=== PATIENT | female | born 1995 | race Caucasian/White ===

== ENCOUNTER 2019-12-16 10:16 | Inpatient (IN) | payer BC ==
[2019-12-14 09:13] VITALS: BMI 26.6
[2019-12-16] MEDS ORDERED: Acetaminophen 325 MG TAB PO PRN (10:29)
[2019-12-16] MEDS ORDERED: Mag-Al 1200 mg/1200 mg/30 ML UDCUP PO PRN (10:29)
[2019-12-16] MEDS ORDERED: Promethazine HCl 25 MG/ML VIAL IM PRN (10:29)
[2019-12-16] MEDS ORDERED: Docusate 100 MG CAP PO PRN (10:29)
[2019-12-16] MEDS ORDERED: Promethazine 25 MG TAB PO PRN (10:29)
[2019-12-16] MEDS ORDERED: Morphine 2 MG/ML SYRINGE SLOW IVP PRN (10:29)
[2019-12-16] MEDS ORDERED: diphenhydrAMINE 50 MG/ML VIAL IVP PRN (10:29)
[2019-12-16] MEDS ORDERED: Ondansetron PF 4 MG/2 ML Vial IVP PRN (10:29)
[2019-12-16] MEDS: Sodium Chloride 0.9% 1,000 ML IV SCH ×2 (20:03→23:36)
[2019-12-16] MEDS: Famotidine 20 MG TAB PO SCH (20:25)
[2019-12-16 20:52] LABS: #Basophils 0.1 thou/uL (0.0-0.2); #Eosinphils 0.1 thou/uL (0.0-0.7); #Lymphocytes 3.2 thou/uL (1.20-3.40); #Neutrophils 11.7 thou/uL (1.40-6.50); %Basophils 0.3 % (0.0-1.0); %Eosinophils 0.4 % (0.0-10.0); %Lymphocytes 19.9 % (21.0-51.0); %Monocytes 6.4 % (0.0-10.0); Hemoglobin 15.3 g/dL (12.0-16.0); Mean Corpuscular HGB CONC 33.5 g/dL (32.0-36.0); Mean Corpuscular Hemoglobin 30.6 pg (27.0-31.0); Mean Corpuscular Volume 91.3 fL (78.0-98.0); Platelet Count 421 thou/uL (130-400); RBC Distribution Width 11.4 % (11.5-14.5); Red Blood Cell (RBC) Count 4.99 mill/uL (4.20-5.40)
[2019-12-16 21:13] LABS: Anion Gap 13 mmol/L (10-20); BUN (Urea Nitrogen) 18 mg/dL (7.0-18.7); Calc. Creatinine Clearance 86 mL/min (70-130); Calcium 9.1 mg/dL (7.8-10.44); Carbon Dioxide 28 mmol/L (22-29); Chloride 100 mmol/L (98-107); Estimated GFR-MDRD 60; Glucose 100 mg/dL (70-105); Potassium 3.9 mmol/L (3.5-5.1); Sodium 137 mmol/L (136-145)
[2019-12-17] MEDS ORDERED: Papaverine 60 MG/2 ML VIAL ONE (06:39)
[2019-12-17] MEDS ORDERED: Bacitracin Zinc Ointment 30 gm TUBE ONE (06:39)
[2019-12-17] MEDS ORDERED: levETIRAcetam 1000 MG/100 ML PREMIX BAG ONE (07:16)
[2019-12-17] MEDS ORDERED: levETIRAcetam 500 MG/100 ML PREMIX BAG ONE (07:16)
[2019-12-17] MEDS ORDERED: CEFAZOLIN 2 GM in Premix Bag 1 BAG IVPB SCH (07:30)
[2019-12-17] MEDS ORDERED: SUGAMMADEX SODIUM 200 MG/2 ML VIAL ONE (07:35)
[2019-12-17] MEDS ORDERED: Fentanyl 100 MCG/2 ML VIAL ONE ×4 (07:40→12:01)
--- NOTE | 2019-12-17 07:40 | HP ---
HISTORY OF PRESENT ILLNESS: The patient is a 23-year-old female, evaluated last week in our office for a new left occipital brain mass. The patient reports that she developed some headaches a week prior and was seen in the [facility] ER for further evaluation. The patient had a noncontrast CT in the ER and found to have a new left occipital brain mass with some surrounding vasogenic edema. I spoke to the ER physician at that time and started the patient on 2 mg of Decadron p.o. t.i.d. and arranged outpatient MRI followup in our office. The patient's followup MRI was notable for a left occipital incompletely enhancing lesion with surrounding vasogenic edema. There is no ventriculomegaly. Pt called delinquency prevention officer team last night for worsening symptoms. Advised to go to for direct admission for urgent need for surgical management. REVIEW OF SYSTEMS: Per HPI. PAST MEDICAL HISTORY: Otherwise healthy. PAST SURGICAL HISTORY: [place] teeth removal. No prior hospitalization. SOCIAL HISTORY: Noncontributory. She does not smoke, drink, or use any drugs. ALLERGIES: NO KNOWN DRUG ALLERGIES. PHYSICAL EXAMINATION: GENERAL: Awake, alert, in no acute distress. HEENT: Head, normocephalic and atraumatic. Eyes, PERRLA. Extraocular movements intact. ENT, oral mucosa pink, intact and moist. She has normal voice. NECK: Nontender. No meningismus or nuchal rigidity. MUSCULOSKELETAL: Free active range of motion of all extremities. No focal motor weakness. No reflex asymmetry. NEURO: A and O x4. No focal neurologic deficits are appreciated. ASSESSMENT: left occipital brain mass. PLAN: I discussed patient's presentation exam and imaging with Dr. Rudolph. He also saw the patient. We will plan to arrange left-sided craniotomy for tumor resection. Job ID: [id number] [facility]
[2019-12-17] MEDS ORDERED: manNITOL 20% 500 ML ONE (08:20)
[2019-12-17] MEDS ORDERED: Lidocaine 1% PF 5 ML VIAL ONE ×2 (10:25)
[2019-12-17] MEDS ORDERED: PHENYLEPHRINE-NS 100 MCG/ML 10 ML SYRINGE ONE (10:25)
[2019-12-17] MEDS ORDERED: Esmolol 100 MG/10 ML VIAL ONE (10:25)
[2019-12-17] MEDS ORDERED: Dexamethasone 20 MG/5 ML VIAL ONE (10:25)
[2019-12-17] MEDS ORDERED: PROPOFOL 200 MG/20 ML VIAL ONE (10:25)
[2019-12-17] MEDS ORDERED: Ondansetron PF 4 MG/2 ML Vial ONE (10:25)
[2019-12-17] MEDS ORDERED: Rocuronium Bromide 10 MG/ML (10ML VIAL) ONE (10:25)
[2019-12-17] MEDS ORDERED: hydrALAZINE 20 MG/ML VIAL SLOW IVP PRN (10:56)
[2019-12-17] MEDS ORDERED: Labetalol HCl 100 MG/20 ML VIAL SLOW IVP PRN (10:57)
[2019-12-17] MEDS ORDERED: HYDROmorphone 2 MG/ML VIAL SLOW IVP PRN (11:22)
[2019-12-17] MEDS ORDERED: Promethazine HCl 25 MG/ML VIAL SLOW IVP PRN (11:22)
[2019-12-17] MEDS ORDERED: Ondansetron HCl/PF 4 MG/2 ML Vial IVP PRN (11:22)
[2019-12-17] MEDS ORDERED: Promethazine HCl 25 MG/ML VIAL IM PRN (11:22)
[2019-12-17] MEDS ORDERED: PACU-Morphine 4MG/ML VIAL SLOW IVP PRN (11:22)
[2019-12-17] MEDS ORDERED: Morphine Sulfate 2 MG/ML SYRINGE SLOW IVP PRN (11:22)
--- NOTE | 2019-12-17 11:23 | OP ---
DATE OF PROCEDURE: 12/17/2019 FASHION EDITOR: Danisha Lopez PA-C. PROCEDURES PERFORMED: Left infratentorial craniectomy, resection left cerebellar tumor. DESCRIPTION OF PROCEDURE: The patient was brought to the operating room and intubated. She was placed in a Cecilio head paper tester and rolled into the prone position on gel-filled chest rolls with the head flexed. A linear incision was made in the left cerebellar hemispheric region exposing the left side of the suboccipital cranium. Craniectomy was performed from the transverse sinus and transverse sigmoid junction inferiorly to just above the foramen magnum. The dura was then opened in cruciate fashion exposing the left cerebral hemisphere. We incised the cerebellar hemisphere and identified the tumor. Frozen section suggested medulloblastoma. In several areas, the tumor had a very good plane from surrounding brain and in other areas, the plane was left discrete. There was no definitive dural attachment and the tentorium was inspected. We were able to circumferentially go around the tumor and remove it in gross stroke fashion. I would consider this as a complete resection. The brain surface was then irrigated and MAC hemostasis was secured. The brain surface was lined with Surgicel. DuraGen artificial dura was used to reinforce the dural closure. Vancomycin powder was applied. DuraSeal was placed over the epidural veins and the wound was then closed in anatomic layers. Job ID: [id number]
[2019-12-17] MEDS: Sodium Chloride 0.9% 1,000 ML IV SCH (14:54)
[2019-12-17] MEDS: Dexamethasone 4 mg/ml Vial SLOW IVP SCH ×2 (14:54→21:57)
[2019-12-17] MEDS: Famotidine 20 MG TAB PO SCH ×2 (14:55→21:57)
[2019-12-17] MEDS: HYDROcodone/Acetaminophen 10/325 mg Tablet PO PRN ×2 (16:27→21:57)
[2019-12-18] MEDS: HYDROcodone/Acetaminophen 10/325 mg Tablet PO PRN ×5 (02:13→23:53)
[2019-12-18] MEDS: Sodium Chloride 0.9% 1,000 ML IV SCH ×2 (03:33→16:02)
[2019-12-18] MEDS: Dexamethasone 4 mg/ml Vial SLOW IVP SCH ×3 (06:15→21:02)
[2019-12-18] MEDS: Famotidine 20 MG TAB PO SCH ×2 (07:40→20:35)
--- NOTE | 2019-12-18 10:07 | PRG ---
DATE OF SERVICE: 12/18/2019 SUBJECTIVE: Best was due for postoperative day #1. She is doing exceptionally well. She is walking in the hallway with Physical Therapy, complaining only of some mild neck pain. We will discontinue her Rob, Hep-Lock her IV, start her on a regular diet, and move her to the floor. We will continue with activities. When she goes home, she will be on a Decadron taper, some pain medicine, and some muscle relaxers. We will await final pathology and we will make further plans regarding any need for adjuvant therapy pending the pathology. I updated the patient and her mother. Job ID: [id number]
[2019-12-19] MEDS: Sodium Chloride 0.9% 1,000 ML IV SCH (05:21)
[2019-12-19] MEDS: Dexamethasone 4 mg/ml Vial SLOW IVP SCH (05:22)
[2019-12-19 07:52] VITALS: TEMP 98.5
[2019-12-19] MEDS: Famotidine 20 MG TAB PO SCH (08:01)
[2019-12-19] MEDS: HYDROcodone/Acetaminophen 10/325 mg Tablet PO PRN (08:02)
[2019-12-19 11:15] VITALS: BP 112/75
--- NOTE | 2019-12-19 11:47 | DIS ---
DATE OF ADMISSION: 12/16/2019 DATE OF DISCHARGE: 12/18/2019 HOSPITAL COURSE: The patient is a 23-year-old female, recently evaluated in our office for new left occipital brain mass. We would plan for outpatient craniotomy with tumor resection. However, the patient had worsening of her symptoms requiring direct admission on 12/16/2019. The patient underwent a left-sided craniotomy with tumor resection on 12/17/2019. 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 Following the surgery, the patient was transitioned to the ICU, where she did very well postoperatively and then eventually to the floor on postoperative day #2. Following the surgery, her pain was well controlled with p.o. medications, she was tolerating a regular diet, and she was voiding appropriately following removal of her Rob on postoperative day #1. We will plan to dismiss the patient to home. Dr. Rudolph has discussed home care and precautions, and we will follow up with the patient in 2 weeks as well as follow her pathology report closely. She has been provided scripts for Tylenol No.3 and Flexeril. COLLECTIONS SPECIALIST [employer]ARxE was checked prior to discharge. Job ID: [id number]
--- NOTE | 2019-12-19 12:43 | PRG ---
DATE OF SERVICE: 12/19/2019 SUBJECTIVE: Ms. Jewell is doing quite well. Her pain is well controlled and she has no symptoms. Her incision was inspected and it is clean, dry, and intact. I have removed her dressing. IMPRESSION AND PLAN: We will discharge her today. 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 We will discontinue Decadron. We will see her back in 2 weeks for staple removal and await final pathology. Job ID: [id number]
--- NOTE | 2019-12-24 06:52 | PQF ---
HELEN BRANDT JONATHAN A MD [id number] [facility]- [id number] CLINICAL DOCUMENTATION CLARIFICATION FORM: POST DISCHARGE Addendum to original discharge summary date: ____ Late entry note date: __ DATE:12/24/2019 ATTN: Wilder Daily Please exercise your independent, professional judgment in responding to the clarification form. Clinical indicators are provided on the bottom of this form for your review Please check appropriate box(s) to clarify if the following diagnosis has been ruled in or ruled out: Vasogenic Edema [ x ] Ruled in diagnosis [ x ] Continue to treat [ ] Resolved [ ] Ruled out diagnosis [ ] Cannot rule out diagnosis [ ] Other diagnosis [ ] Unable to determine In addition, please specify: Present on Admission (POA): [ x ] Yes [ ] No [ ] Unable to determine For continuity of documentation, please document condition throughout progress notes and discharge summary. Thank You. CLINICAL INDICATORS - SIGNS / SYMPTOMS / LABS H&P p1 12/15 Dr Lopez The pt reports that she developed some headaches a week H&P p1 12/15 Dr Lopez Pt had a noncontrast CT in ER and found to have a new left occipital brain mass with some surrounding vasogenic edema. H&P p1 12/15 Dr Lopez MRI was notable for left occipital incompletely enhancing lesion with surrounding vasogenic edema RISK FACTORS H&P p1 12/15 - Female Scanned H&P p2 Mass of occipital region Scanned H&P p2 Lumbar herniated disc Operative report 12/16 Medulloblastoma TREATMENTS NOV 26 IV Cefazolin 2gm NOV 26 IV Decadron 4gm NOV 26 Keppra 500 mg PO MRA 12/16 IV Mannitol 500mls NOV 26 IV Vancomycin Operative report 12/16 left intratentorial cranienctomy, resection left cerebellar tumor (This form is maintained as a part of the permanent medical record) 2014 [employer] All Rights Reserved [email or web address]
== END 2019-12-19 12:44 | disposition home or self-care (01) | DRG 25 ==
LOC: SURG A 10:16 → CCU 12-17 14:01 → EDSTATUS 12-17 14:16 → CCU 12-17 19:36 → SURG B 12-18 13:23
PROVIDERS: ADMIT Neurological Surgery; ATTEND Neurological Surgery
PROC: 00BC0ZZ Excision of Cerebellum, Open Approach (ICD-10-PCS; principal; 2019-12-17)
PROC: 00U20KZ Supplement Dura Mater with Nonautologous Tissue Substitute, Open Approach (ICD-10-PCS; 2019-12-17)
DX: C71.6 Malignant neoplasm of cerebellum (principal); G93.6 Cerebral edema; Z79.52 Long term (current) use of systemic steroids; M51.26 Other intervertebral disc displacement, lumbar region
CPT/HCPCS: 36415; 80048; 85025; 88307; 88313; 88325; 88331; 88334; 88341; 88342; 88360; J0690; J1100; J1953; J2001; J2405; J2440; J2704; J3010; J3370; J7799

== ENCOUNTER 2020-01-03 11:29 | Outpatient (CLI) | payer BC ==
--- NOTE | 2020-01-03 14:31 | MRI ---
Exam: Brain MRI with and without contrast HISTORY: Medulloblastoma, status post resection. Evaluate for metastases. Recent craniotomy. COMPARISON: None FINDINGS: Gradient echo sequence: No hemorrhage Calvarium: Appropriate T1 marrow signal intensity. Postsurgical changes compatible with a left occipi naman craniectomy. Midline brain parenchyma: Unremarkable Cerebrum:The cerebrum has appropriate signal intensity. No mass effect or midline shift. Brain volume is age-appropriate. Cortical lynne-white matter differentiation is preserved. No significant T2 or FLAIR white matter hyperintensities. Cerebellum: There is encephalomalacia and gliosis involving the lateral aspect of the left cerebellar hemisphere. A component of the left cerebellar hemisphere extends beyond the confines of the expected margin of the calvarium and is noted in the posterior left neck soft tissues. This component of herniated left cerebellum measures 2.1 x 1.8 cm. There is adjacent heterogeneous signal intensity on the T2-weighted images measuring 4.7 x 2.8 cm. Postoperative fluid is favored. Ventricles: No evidence of hydrocephalus. Sinuses and mastoid air cells: Adequate aeration Diffusion: Central arterial flow is maintained. Absent restricted diffusion. Postcontrast images:No pathologic enhancement of the cerebrum. There is linear enhancement involving the cerebellum, measuring 1.2 x 1.6 cm. Residual tumor versus scar tissue is suspected. The adjacent dura also demonstrates enhancement. There is mild granulation of the soft tissues along the posterior aspect of the neck along the periphery of the previously mentioned postoperative fluid collection. IMPRESSION: 1. Enhancement involving the lateral aspect of the left cerebellum which may represent postoperative scar versus residual tumor. 2. Enhancement of the overlying dura, presumed to be reactive. 3. Herniation of a segment of cerebellum beyond the confines of the calvarium, noted in the posterior left aspect of the neck. 4. Postoperative fluid collection in the posterior aspect of the neck. Results of study conveyed to Dr. Spence on 01/03/2020 at 2:30 PM via [employer]. CODE CR. Transcribed Date/Time: 01/03/2020 3:05 PM
--- NOTE | 2020-01-03 14:36 | MRI ---
MRI OF THE CERVICAL SPINE WITH AND WITHOUT CONTRAST: 01/03/20 INDICATION: History of medulloblastoma, concern for drop metastases. CONTRAST: 15 mL of Multihance. TECHNIQUE: Multiplanar and multisequence MR images were obtained of the cervical spine with and without contrast utilizing 15 mL of Multihance. No radiographic, MR or CT comparisons are available. FINDINGS: There is postprocedural change of a left occipital craniectomy. There is mild left partial mastoid ef fusion. Small fluid collection is seen overlying the postsurgical site which is likely postoperative in natur e measuring approximately 5.6 x 6.5 x 2.8 cm. No appreciable central canal or neural foraminal narrowing is demonstrated. The spinal cord demonstra ever a normal signal intensity and caliber. There is no abnormal enhancement seen involving the spinal cord. The bone marrow signal intensity appears within normal limits of the cervical spine. Spinal a lignment is within normal limits. IMPRESSION: No overt evidence to suggest drop metastases within the cervical spine. POS:
--- NOTE | 2020-01-03 14:43 | MRI ---
MR OF THE THORACIC SPINE WITH AND WITHOUT CONTRAST: 01/03/20 INDICATION: History of medulloblastoma status post resection. Concern for drop metastases within the thoracic spi nal canal. TECHNIQUE: Multiplanar and multisequence MR images were obtained of the thoracic spine with and without contrast utilizing 15 mL of Multihance. No radiographic or MR comparisons are available. FINDINGS: There is loss of the normal disc signal and height at T7 and T8 with a right paracentral disc protru mikey. The disc protrusion causes effacement of the subarachnoid space without definite spinal cord co mpression. There is no appreciable neural foraminal narrowing. No appreciable neural foraminal or megan tral canal narrowing is seen at the remaining thoracic vertebral segments. The bone marrow signal int ensity appears within normal limits. The thoracic spinal cord is normal in caliber. No abnormal enhan cement is demonstrated. Spinal alignment is preserved. IMPRESSION: 1. No evidence of drop metastases within the thoracic spinal canal. 2. Right paracentral disc protrusion at T7-T8 causing mild ventral effacement of the right ventr al lateral subarachnoid space without definite cord compression. POS: BH
--- NOTE | 2020-01-03 14:50 | MRI ---
MR OF THE LUMBAR SPINE WITH AND WITHOUT CONTRAST: 01/03/20 INDICATION: History of medulloblastoma status post resection, rule out mets. COMPARISON: None. TECHNIQUE: Multiplanar and multisequence MR images were obtained in the lumbar spine with and without contrast u tilizing 15 mL of Multihance. FINDINGS: The conus is seen to terminate at L1. There is loss of normal disc signal and height at L4-5. There i s a large central disc protrusion at L4-5 inducing effacement of the subarachnoid space without defin ite nerve root compression. No neural foraminal narrowing is demonstrated. The bone marrow signal int ensity is normal appearing. No definite abnormal region of enhancement is demonstrated. IMPRESSION: 1. No evidence of drop metastases within the lumbar spinal column. 2. Large central disc protrusion at L4-5 causing mild to moderate ventral effacement of the suba rachnoid space without definite nerve root impingement. POS: BH
== END 2020-01-03 11:30 | disposition home or self-care (01) ==
LOC: MRI 11:29
PROVIDERS: ATTEND Internal Medicine Hematology & Oncology
DX: C71.6 Malignant neoplasm of cerebellum (principal); M51.26 Other intervertebral disc displacement, lumbar region; M51.24 Other intervertebral disc displacement, thoracic region; G93.5 Compression of brain; T88.8XXA Other specified complications of surgical and medical care, not elsewhere classified, initial encounter
CPT/HCPCS: 70553; 72156; 72157; 72158

== ENCOUNTER 2020-01-09 07:11 | Day surgery (SDC) | payer BC ==
[2020-01-08 15:21] VITALS: BMI 27.3
[2020-01-09 08:36] VITALS: BP 116/72; TEMP 98.2
--- NOTE | 2020-01-09 08:57 | RAD ---
FLUOROSCOPICALLY GUIDED LUMBAR PUNCTURE: HISTORY: Malignant neoplasm of the cerebellum. EXPOSURE: 0.3 minutes, 20.2 mGy*^m2. SANDFILL OPERATOR RADIOGRAPH: Two views lumbar spine demonstrate 5 lumbar-type vertebrae. Vertebral body height is maintained. No f racture. No malalignment. Disc space heights are preserved. Successful lumbar puncture. A total of 9.25 cc of clear CSF was accumulated TECHNIQUE: Consent obtained performing lumbar puncture. The L3-L4 level was deemed appropriate. Skin was prepped and draped in sterile fashion. 1% lidocaine, buffered with sodium bicarbonate was used for local anesthesia. Under fluoroscopic guidance, a 22-gauge spinal needle was advanced into the CSF space. "C lear CSF to the hub of the needle. Via a short tubing catheter, a total of 9.25 cc of clear CSF was accumulated. Patient tolerated the procedure well. No immediate or postprocedure complications. IMPRESSION: Successful lumbar puncture. Transcribed Date/Time: 01/09/2020 9:48 AM
[2020-01-09 09:08] LABS: CSF Source CSF; Clarity Clear (Clear); Tube # 4
[2020-01-09 09:13] LABS: CSF, Glucose 51 mg/dl (40-70); CSF, Protein 54 mg/dL (15-40)
[2020-01-09 09:45] LABS: Color Of CSF Supernatant COLORLESS (Colorless); Tube # 1; Unspun CSF Color COLORLESS (Colorless)
== END 2020-01-09 09:35 | disposition home or self-care (01) ==
LOC: RAD 07:11
PROVIDERS: ATTEND Internal Medicine Hematology & Oncology
PROC: 00JU3ZZ Inspection of Spinal Canal, Percutaneous Approach (ICD-10-PCS; principal; 2020-01-09)
DX: C71.6 Malignant neoplasm of cerebellum (principal)
CPT/HCPCS: 62270; 82945; 84157; 88112; 89051